=== PATIENT | male | born 1955 | race Caucasian/White ===

== ENCOUNTER 2018-07-01 11:10 | Emergency (ER) | payer MEDICAID ==
[2018-07-01 11:21] VITALS: BP 124/82; PULSE 70; RESP 18; TEMP 97.9; O2SAT 97
[2018-07-01] MEDS ORDERED: Epinephrine /Lidocaine HCL 1:100,000/2% 30 ml INJ STA (11:49)
[2018-07-01] MEDS ORDERED: Tdap Vaccine 0.5 ml Vial (10-64 yrs) IM ONE ×2 (11:50→12:31)
--- NOTE | 2018-07-01 12:43 | CT ---
Date of service: 07/01/2018 PROCEDURE: CT HEAD WITHOUT CONTRAST. HISTORY: s/p fall - r/o ICH and fx COMPARISON: No prior study available for comparison TECHNIQUE: Axial computed tomography images were obtained through the head/brain without intravenous contrast. Radiation dose: Total exam DLP = 859.16 mGy-cm. This CT exam was performed using one or more of the following dose reduction techniques: Automated exposure control, adjustment of the mA and/or kV according to patient size, and/or use of iterative reconstruction technique. FINDINGS: HEMORRHAGE: No acute parenchymal, subarachnoid or extra-axial hemorrhage. BRAIN: Very minor diffuse/confluent chronic periventricular white matter ischemic changes are felt to be present. No obvious parenchymal or extra-axial masses or collections seen on this noncontrast exam. Mild moderate generalized volume loss. Mild vascular calcifications both carotid siphons. VENTRICLES: No obstructive hydrocephalus. CALVARIUM: Calvarium appears intact. There appears to be mild right frontal scalp swelling. PARANASAL SINUSES: Mild mucoperiosteal inflammatory changes seen both maxillary antrum several ethmoid air cells extending slightly into the inferior margin of the frontal sinus MASTOID AIR CELLS: Left mastoid air complex is sclerotic and underpneumatized. OTHER FINDINGS: None. IMPRESSION: No acute intracranial hemorrhage. Minor chronic periventricular white matter ischemic changes. Mild to moderate generalized volume loss. There appears to be mild right frontal scalp swelling
[2018-07-01] MEDS ORDERED: Bacitracin 500 Units/gm Oint Foilpak UD ONE (13:06)
[2018-07-01] MEDS ORDERED: Bacitracin Ointment 30 GM TUBE TOP STA (13:19)
--- NOTE | 2018-07-01 14:56 | C.PDOC ---
History Of Present Illness 62 y/o male, ANUPAMA, presents to the ED for evaluation s/p trip and sustaining laceration to forehead from glass. He admits to being on blood thinners that he does not remember the name of. The patient denies any LOC symptoms prior to fall. He offers no other medical complaints at the time. Time Seen by Provider: 07/01/18 11:25 Chief Complaint (Nursing): Abnormal Skin Integrity History Per: Patient History/Exam Limitations: no limitations Onset/Duration Of Symptoms: Hrs Location Of Injury: Anterior: Face (forehead) Recent travel outside of the [place]: No Past Medical History Reviewed: Historical Data, Nursing Documentation, Vital Signs Vital Signs: Last Vital Signs Temp 97.9 F 07/01/18 11:15 Pulse 70 07/01/18 11:15 Resp 18 07/01/18 11:15 BP 124/82 07/01/18 11:15 Pulse Ox 97 07/01/18 15:34 - Medical History PMH: Diabetes (mellitus type 2 ) Surgical History: No Surg Hx Family History: States: Unknown Family Hx - Social History Hx Alcohol Use: No Hx Substance Use: No - Immunization History Hx Tetanus Toxoid Vaccination: No Hx Influenza Vaccination: No Hx Pneumococcal Vaccination: No Review Of Systems Except As Marked, All Systems Reviewed And Found Negative. Constitutional: Negative for: Fever Skin: Positive for: Lesions (forehead) Physical Exam - Physical Exam Appears: No Acute Distress Skin: Normal Color, Warm, Dry Head: Laceration (3 cm. Slightly jagged. Oozing blood) Eye(s): bilateral: PERRL, EOMI Oral Mucosa: Moist Neck: Supple Chest: Symmetrical Cardiovascular: Rhythm Regular, No Murmur Respiratory: No Rhonchi, No Wheezing Neurological/Psych: Oriented x3, Normal Speech, Normal Motor, Normal Sensation Gait: Steady ED Course And Treatment O2 Sat by Pulse Oximetry: 97 (RA) Pulse Ox Interpretation: Normal - CT Scan/US Head Other Rad Studies (CT/US): Read By Radiologist, Radiology Report Reviewed CT/US Interpretation: FINDINGS: HEMORRHAGE: No acute parenchymal, subarachnoid or extra-axial hemorrhage. BRAIN: Very minor diffuse/confluent chronic periventricular white matter ischemic changes are felt to be present. No obvious parenchymal or extra-axial masses or collections seen on this noncontrast exam. Mild moderate generalized volume loss. Mild vascular calcifications both carotid siphons. VENTRICLES: No obstructive hydrocephalus. CALVARIUM: Calvarium appears intact. There appears to be mild right frontal scalp swelling. PARANASAL SINUSES: Mild mucoperiosteal inflammatory changes seen both maxillary antrum several ethmoid air cells extending slightly into the inferior margin of the frontal sinus. MASTOID AIR CELLS: Left mastoid air complex is sclerotic and underpneumatized. OTHER FINDINGS: None. IMPRESSION: No acute intracranial hemorrhage. Minor chronic periventricular white matter ischemic changes. Mild to moderate generalized volume loss. There appears to be mild right frontal scalp swelling Laceration - Laceration Repair Forehead Wound Length (In cm): 3 cm Description Of Wound: Irregular (slightly jagged) Wound Cleansed With: Sterile Saline Anesthesia: Lidocaine 2% Wound Closure: Suture (10 6.0 stitched) Suture Technique And Material Used: Nylon Wound Complexity: Simple Medical Decision Making Medical Decision Making: Impression: 62 y/o male with laceration to forehead from glass Plan: --Head CT --Tetanus --Bacitracin 0.9 gm Progress: Laceration repair was successful. Disposition - Disposition Referrals: [facility], [Non-Staff] - Disposition: HOME/ ROUTINE Disposition Time: 13:00 Condition: IMPROVED Additional Instructions: AMANDA HERNADEZ, thank you for letting us take care of you today. Your provider was Kali Varela DO and you were treated for FALL/HEAD LACERATION. The emergency medical care you received today was directed at your acute symptoms. If you were prescribed any medication, please fill it and take as directed. It may take several days for your symptoms to resolve. Return to the Emergency Department if your symptoms worsen, do not improve, or if you have any other problems. Please contact your doctor or call one of the physicians/clinics you have been referred to that are listed on the Patient Visit Information form that is included in your discharge packet. Bring any paperwork you were given at discharge with you along with any medications you are taking to your follow up visit. Our treatment cannot replace ongoing medical care by a primary care provider outside of the emergency department. Thank you for allowing the [facility] team to be part of your care today. Follow up with your doctor in 5-6 days for stitches to be removed. 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 - Scribe Statement The provider has reviewed the documentation as recorded by the Scribe (Ynes Arroyo) Provider Attestation: All medical record entries made by the Scribe were at my direction and personally dictated by me. I have reviewed the chart and agree that the record accurately reflects my personal performance of the history, physical exam, medical decision making, and the department course for this patient. I have also personally directed, reviewed, and agree with the discharge instructions and disposition.
== END 2018-07-01 13:26 | disposition home or self-care (01) ==
LOC: C.ER 11:10
DX: S01.81XA Laceration without foreign body of other part of head, initial encounter (principal); W01.198A Fall on same level from slipping, tripping and stumbling with subsequent striking against other object, initial encounter